=== PATIENT | male | born 1995 | race Caucasian/White ===

== ENCOUNTER 2017-07-17 11:09 | Emergency (ER) | END 2017-07-17 14:43 | disposition home or self-care (01) ==

== ENCOUNTER 2018-03-23 11:05 | Emergency (ER) | END 2018-03-23 12:02 | disposition home or self-care (01) ==

== ENCOUNTER 2018-04-05 14:59 | Emergency (ER) | END 2018-04-05 16:58 | disposition home or self-care (01) ==